=== PATIENT | female | born 1965 | race Two or more races ===

== ENCOUNTER 2020-07-30 16:18 | Inpatient (IN) | payer OTHER, SELFPAY ==
[~2020-07-30] VITALS: Ht 154.9 cm; Wt 91.4 kg
[2020-07-30 17:11] LABS: Basophils # (auto) 0 10 ^3/uL (0-0.2); Basophils % (auto) 0.2 % (0.0-2.0); Eosinophils # (auto) 0 10 ^3/uL (0-0.8); Hemoglobin 12.9 g/dL (12.2-16.2); Lymphocytes # (auto) 1.2 10 ^3/uL (0.4-5.4); Lymphocytes % (auto) 25.2 % (10.0-50.0); Mean Corpuscular Hemoglobin 29.1 pg (28.0-32.0); Mean Corpuscular Hgb Conc. 33.9 g/dL (32.0-36.0); Mean Corpuscular Volume 85.8 fL (80.0-100.0); Monocytes # (auto) 0.5 10 ^3/uL (0-1.3); Monocytes % (auto) 10.1 % (0.0-12.0); Neutrophils # (auto) 3.2 10 ^3/uL (1.6-8.6); Neutrophils % (auto) 64.5 % (37.0-80.0); Nucleated Red Blood Cells % 0.1 %; Red Blood Cells 4.43 10^6/uL (4.0-5.20); White Blood Cell 4.9 10^3/uL (4.4-10.8)
[2020-07-30 17:27] LABS: Albumin 2.8 g/dL (3.4-5.0); Anion Gap 9 (5-15); Blood Urea Nitrogen 8 mg/dL (7-18); Calcium 8.4 mg/dL (8.5-10.1); Carbon Dioxide 25 mmol/L (21-32); Chloride 98 mmol/L (98-107); Magnesium 1.7 mg/dL (1.6-2.6); Potassium 3.8 mmol/L (3.5-5.1); Sodium 132 mmol/L (136-145)
[2020-07-30] MEDS ORDERED: DexAMETHasone SOD PHOS 10MG/1ML VIAL INJ IV ONE (17:30)
[2020-07-30] MEDS ORDERED: AZITHROMYCIN 500MG/ 250ML 250 ML IV ONE (17:30)
[2020-07-30 17:33] LABS: Alanine Aminotransferase 29 U/L (13-56); Alkaline Phosphatase 129 U/L (45-117); Aspartate Aminotransferase 26 U/L (15-37); BUN/Creatinine Ratio 9.4; Bilirubin, Total 0.3 mg/dL (0.2-1.0); GFR African American 90 mL/min; GFR Non-African American 74 mL/min; Lactic Acid w/Reflex 2.4 mmol/L (0.4-2.0); Total Protein 7.5 g/dL (6.4-8.2)
[2020-07-30 18:19] LABS: Glucose 445 mg/dL (74-106)
[2020-07-30] MEDS ORDERED: SODIUM CHLORIDE 0.9% 1,000 ML IV ONE (18:30)
[2020-07-30] MEDS ORDERED: ONDANSETRON HCL 4 MG/2 ML VIAL IV PRN (21:45)
[2020-07-30] MEDS ORDERED: NITROGLYCERIN 0.4 MG SL TAB SL PRN (21:45)
[2020-07-30] MEDS ORDERED: TEMAZEPAM 15 MG CAP PO PRN (21:45)
[2020-07-30] MEDS ORDERED: MORPHINE SULFATE INJECTION 2 MG/ML SYRG IV PRN (21:45)
[2020-07-30] MEDS ORDERED: cloNIDine HCL 0.1 MG TAB PO PRN (21:45)
[2020-07-30] MEDS ORDERED: DEXTROSE (50%) 50ML SYRG IV PRN (21:45)
[2020-07-30 22:41] LABS: CRP High Sensitivity 7.82 mg/dL (< 0.3)
[2020-07-30] MEDS: ENOXAPARIN SOD 40 MG/0.4 ML SYRINGE SC SCH (23:36)
[2020-07-30] MEDS: FAMOTIDINE 20 MG TAB PO SCH (23:36)
[2020-07-31] MEDS: InsuLIN REG 1unit/0.01ml Soln (100units/ml) SC SCH ×4 (00:03→17:02)
[2020-07-31] MEDS: ACCU-CHEK COMFORT CURVE STRIP VI SCH ×4 (00:06→17:02)
[2020-07-31 06:07] LABS: Basophils # (auto) 0 10 ^3/uL (0-0.2); Basophils % (auto) 0.1 % (0.0-2.0); Eosinophils # (auto) 0 10 ^3/uL (0-0.8); Hematocrit 35.3 % (36.0-46.0); Hemoglobin 12.1 g/dL (12.2-16.2); Lymphocytes # (auto) 0.9 10 ^3/uL (0.4-5.4); Lymphocytes % (auto) 21.9 % (10.0-50.0); Mean Corpuscular Hemoglobin 29.6 pg (28.0-32.0); Mean Corpuscular Hgb Conc. 34.3 g/dL (32.0-36.0); Mean Corpuscular Volume 86.3 fL (80.0-100.0); Monocytes # (auto) 0.4 10 ^3/uL (0-1.3); Monocytes % (auto) 11.2 % (0.0-12.0); Neutrophils # (auto) 2.7 10 ^3/uL (1.6-8.6); Neutrophils % (auto) 66.8 % (37.0-80.0); Nucleated Red Blood Cells % 0.1 %; Red Blood Cells 4.09 10^6/uL (4.0-5.20); Red Cell Distribution Width 15.2 % (11.8-14.3)
[2020-07-31 06:50] LABS: Albumin 2.7 g/dL (3.4-5.0); Potassium 4.3 mmol/L (3.5-5.1)
[2020-07-31 06:58] LABS: BUN/Creatinine Ratio 14.7; Bilirubin, Total 0.3 mg/dL (0.2-1.0); Total Protein 7.3 g/dL (6.4-8.2)
[2020-07-31] MEDS: DexAMETHasone SOD PHOS 10MG/1ML VIAL INJ IV SCH (09:49)
[2020-07-31] MEDS: ENOXAPARIN SOD 40 MG/0.4 ML SYRINGE SC SCH ×2 (09:49→21:57)
[2020-07-31] MEDS: CHOLECALCIFEROL (VITD3) 2,000 UNIT CAP/TAB PO SCH (09:49)
[2020-07-31] MEDS: ZINC SULFATE 220mg CAP or TAB PO SCH (09:49)
[2020-07-31] MEDS: ASCORBIC ACID 1,000 MG TAB PO SCH (09:49)
[2020-07-31] MEDS: FAMOTIDINE 20 MG TAB PO SCH ×2 (09:49→21:57)
[2020-07-31] MEDS: AZITHROMYCIN 500MG/ 250ML 250 ML IV SCH (09:49)
[2020-07-31] MEDS ORDERED: REMDESIVIR PER PHARMACY 0 ML IV SCH (11:45)
[2020-07-31] MEDS ORDERED: REMDESIVIR 200 MG in NS 210ml LOADING DOSE ADULT IV ONE (15:00)
[2020-07-31] MEDS ORDERED: INSULIN LISPRO (HUMAN) 100 UNITS/ML ML SC ONE (17:30)
[2020-07-31 21:15] VITALS: BP 106/65
[2020-07-31 22:00] VITALS: BP 106/65
[2020-07-31] MEDS: INSULIN LANTUS (GLARGINE) 1 /0.01ml (100units/ml) SC SCH (22:10)
[2020-07-31] MEDS: guaiFENesin 200 MG/10 ML UD PO PRN (22:15)
[2020-08-01] VITALS: BP 121/71
[2020-08-01] MEDS: ACETAMINOPHEN 500 MG TAB PO PRN (02:44)
[2020-08-01] MEDS: ACCU-CHEK COMFORT CURVE STRIP VI SCH ×5 (06:22→19:34)
[2020-08-01] MEDS: InsuLIN REG 1unit/0.01ml Soln (100units/ml) SC SCH ×5 (06:29→19:38)
[2020-08-01] MEDS: ALBUTEROL SULF HFA 90MCG INH 200DOSE IN PRN (06:57)
[2020-08-01 07:36] LABS: Potassium 3.4 mmol/L (3.5-5.1)
[2020-08-01 07:48] LABS: Albumin 2.6 g/dL (3.4-5.0); BUN/Creatinine Ratio 25.4; Bilirubin, Total 0.2 mg/dL (0.2-1.0); Calcium 8.3 mg/dL (8.5-10.1); Total Protein 6.7 g/dL (6.4-8.2)
[2020-08-01 08:00] VITALS: BP 114/76
[2020-08-01] MEDS: ZINC SULFATE 220mg CAP or TAB PO SCH (09:17)
[2020-08-01] MEDS: AZITHROMYCIN 500MG/ 250ML 250 ML IV SCH (09:17)
[2020-08-01] MEDS: guaiFENesin 200 MG/10 ML UD PO PRN (09:17)
[2020-08-01] MEDS: DexAMETHasone SOD PHOS 10MG/1ML VIAL INJ IV SCH (09:17)
[2020-08-01] MEDS: ASCORBIC ACID 1,000 MG TAB PO SCH (09:18)
[2020-08-01] MEDS: CHOLECALCIFEROL (VITD3) 2,000 UNIT CAP/TAB PO SCH (09:18)
[2020-08-01] MEDS: FAMOTIDINE 20 MG TAB PO SCH ×2 (09:18→21:41)
[2020-08-01] MEDS: INSULIN LANTUS (GLARGINE) 1 /0.01ml (100units/ml) SC SCH (09:19)
[2020-08-01] MEDS: ENOXAPARIN SOD 40 MG/0.4 ML SYRINGE SC SCH ×2 (09:19→21:42)
[2020-08-01] MEDS ORDERED: POTASSIUM EFFERVESENT TAB 25 MEQ PO ONE (11:15)
[2020-08-01] MEDS ORDERED: CEFTRIAXONE SODIUM 2 GM in D5W 5% 50 ML IV ONE (11:15)
[2020-08-01] MEDS: ERGOCALCIFEROL 50,000 UNIT(1.25MG) CAP PO SCH (14:03)
[2020-08-01] MEDS: THROAT LOZENGES(CEPASTAT) MT PRN ×2 (14:04→17:16)
[2020-08-01 16:00] VITALS: BP 122/70
[2020-08-01] MEDS: REMDESIVIR 100 MG in SODIUM CHL 0.9% 250 ML IV SCH (16:34)
[2020-08-01] MEDS ORDERED: InsuLIN REG 1unit/0.01ml Soln (100units/ml) IV ONE (18:00)
[2020-08-01] MEDS ORDERED: DEXTROSE (50%) 50ML SYRG IV PRN (18:00)
[2020-08-01] MEDS ORDERED: INSULIN LANTUS (GLARGINE) 1 /0.01ml (100units/ml) SC SCH (22:00)
[2020-08-02] VITALS: BP 116/70
[2020-08-02] MEDS: ACCU-CHEK COMFORT CURVE STRIP VI SCH ×6 (00:25→20:15)
[2020-08-02] MEDS: HYDROcodone-ACET 5/325MG TAB PO PRN (00:26)
[2020-08-02] MEDS: InsuLIN REG 1unit/0.01ml Soln (100units/ml) SC SCH ×6 (00:27→20:29)
[2020-08-02 07:14] LABS: Potassium 3.6 mmol/L (3.5-5.1)
[2020-08-02 07:34] LABS: Albumin 2.4 g/dL (3.4-5.0); BUN/Creatinine Ratio 24.2; Bilirubin, Total 0.2 mg/dL (0.2-1.0); Calcium 8.3 mg/dL (8.5-10.1); Total Protein 6.3 g/dL (6.4-8.2)
[2020-08-02 08:00] VITALS: BP 99/59
[2020-08-02] MEDS: AZITHROMYCIN 500MG/ 250ML 250 ML IV SCH (10:00)
[2020-08-02] MEDS: ENOXAPARIN SOD 40 MG/0.4 ML SYRINGE SC SCH ×2 (10:00→22:44)
[2020-08-02] MEDS: CHOLECALCIFEROL (VITD3) 2,000 UNIT CAP/TAB PO SCH (12:28)
[2020-08-02] MEDS: ZINC SULFATE 220mg CAP or TAB PO SCH (12:28)
[2020-08-02] MEDS: ASCORBIC ACID 1,000 MG TAB PO SCH (12:28)
[2020-08-02] MEDS: FAMOTIDINE 20 MG TAB PO SCH ×2 (12:28→22:44)
[2020-08-02] MEDS: DexAMETHasone SOD PHOS 10MG/1ML VIAL INJ IV SCH (12:32)
[2020-08-02] MEDS: cefTRIAXone 1GM/50ML D5W 50 ML IV SCH (12:32)
[2020-08-02] MEDS: THROAT LOZENGES(CEPASTAT) MT PRN (12:32)
[2020-08-02] MEDS: INSULIN LANTUS (GLARGINE) 1 /0.01ml (100units/ml) SC SCH ×2 (12:34→22:46)
[2020-08-02 16:00] VITALS: BP 111/61
[2020-08-02] MEDS: REMDESIVIR 100 MG in SODIUM CHL 0.9% 250 ML IV SCH (16:45)
[2020-08-02] MEDS: ALBUTEROL SULF HFA 90MCG INH 200DOSE IN PRN (22:00)
[2020-08-02] MEDS: ACETAMINOPHEN 500 MG TAB PO PRN (22:45)
[2020-08-02 23:22] VITALS: BP 104/66
[2020-08-03] VITALS: BP 104/66
[2020-08-03] MEDS: ACCU-CHEK COMFORT CURVE STRIP VI SCH ×6 (00:15→20:23)
[2020-08-03] MEDS: InsuLIN REG 1unit/0.01ml Soln (100units/ml) SC SCH ×6 (00:17→20:25)
[2020-08-03 05:35] VITALS: BP 117/71
[2020-08-03 06:23] LABS: Basophils # (auto) 0 10 ^3/uL (0-0.2); Basophils % (auto) 0.1 % (0.0-2.0); Eosinophils # (auto) 0 10 ^3/uL (0-0.8); Hemoglobin 12.5 g/dL (12.2-16.2); Monocytes # (auto) 0.6 10 ^3/uL (0-1.3); Neutrophils # (auto) 4.7 10 ^3/uL (1.6-8.6); Nucleated Red Blood Cells % 0.1 %; White Blood Cell 6.7 10^3/uL (4.4-10.8)
[2020-08-03 06:30] LABS: Hematocrit 36.5 % (36.0-46.0); Lymphocytes # (auto) 1.3 10 ^3/uL (0.4-5.4); Lymphocytes % (auto) 20.1 % (10.0-50.0); Mean Corpuscular Hemoglobin 28.8 pg (28.0-32.0); Mean Corpuscular Hgb Conc. 34.2 g/dL (32.0-36.0); Monocytes % (auto) 8.6 % (0.0-12.0); Neutrophils % (auto) 71.2 % (37.0-80.0); Red Blood Cells 4.35 10^6/uL (4.0-5.20); Red Cell Distribution Width 14.9 % (11.8-14.3)
[2020-08-03 07:56] LABS: Albumin 2.4 g/dL (3.4-5.0); Calcium 8.6 mg/dL (8.5-10.1)
[2020-08-03 08:00] VITALS: BP 87/59
[2020-08-03 08:01] LABS: BUN/Creatinine Ratio 22.1; Bilirubin, Total 0.2 mg/dL (0.2-1.0); Total Protein 6.9 g/dL (6.4-8.2)
[2020-08-03] MEDS: THROAT LOZENGES(CEPASTAT) MT PRN ×2 (10:40→22:15)
[2020-08-03] MEDS: cefTRIAXone 1GM/50ML D5W 50 ML IV SCH (10:47)
[2020-08-03] MEDS: DexAMETHasone SOD PHOS 10MG/1ML VIAL INJ IV SCH (10:50)
[2020-08-03] MEDS: ASCORBIC ACID 1,000 MG TAB PO SCH (10:51)
[2020-08-03] MEDS: ENOXAPARIN SOD 40 MG/0.4 ML SYRINGE SC SCH ×2 (10:51→22:15)
[2020-08-03] MEDS: CHOLECALCIFEROL (VITD3) 2,000 UNIT CAP/TAB PO SCH (10:51)
[2020-08-03] MEDS: FAMOTIDINE 20 MG TAB PO SCH ×2 (10:51→22:15)
[2020-08-03] MEDS: AZITHROMYCIN 500MG/ 250ML 250 ML IV SCH (10:52)
[2020-08-03] MEDS: ACETAMINOPHEN 500 MG TAB PO PRN ×2 (10:53→22:15)
[2020-08-03] MEDS: ZINC SULFATE 220mg CAP or TAB PO SCH (10:58)
[2020-08-03] MEDS: INSULIN LANTUS (GLARGINE) 1 /0.01ml (100units/ml) SC SCH ×2 (11:14→22:19)
[2020-08-03 16:00] VITALS: BP 112/64
[2020-08-03] MEDS: REMDESIVIR 100 MG in SODIUM CHL 0.9% 250 ML IV SCH (16:39)
[2020-08-03] MEDS: ALBUTEROL SULF HFA 90MCG INH 200DOSE IN PRN (19:55)
[2020-08-03 23:12] VITALS: BP 114/57
[2020-08-04] VITALS (7 sets, daily range): BP systolic 104–132; BP diastolic 57–75
[2020-08-04] MEDS: ACCU-CHEK COMFORT CURVE STRIP VI SCH ×6 (00:30→20:48)
[2020-08-04] MEDS: InsuLIN REG 1unit/0.01ml Soln (100units/ml) SC SCH ×7 (00:31→23:00)
[2020-08-04] MEDS: ACETAMINOPHEN 500 MG TAB PO PRN ×2 (06:45→18:20)
[2020-08-04] MEDS: ALBUTEROL SULF HFA 90MCG INH 200DOSE IN PRN ×2 (07:45→20:11)
[2020-08-04 07:49] LABS: Potassium 3.4 mmol/L (3.5-5.1)
[2020-08-04 08:26] LABS: Albumin 2.7 g/dL (3.4-5.0); BUN/Creatinine Ratio 20.7; Calcium 8.7 mg/dL (8.5-10.1)
[2020-08-04 08:29] LABS: Bilirubin, Total 0.2 mg/dL (0.2-1.0); Total Protein 6.9 g/dL (6.4-8.2)
[2020-08-04] MEDS: INSULIN LANTUS (GLARGINE) 1 /0.01ml (100units/ml) SC SCH ×2 (09:30→23:00)
[2020-08-04] MEDS: ZINC SULFATE 220mg CAP or TAB PO SCH (09:30)
[2020-08-04] MEDS: ASCORBIC ACID 1,000 MG TAB PO SCH (09:30)
[2020-08-04] MEDS: FAMOTIDINE 20 MG TAB PO SCH ×2 (09:31→21:45)
[2020-08-04] MEDS: DexAMETHasone SOD PHOS 10MG/1ML VIAL INJ IV SCH (09:31)
[2020-08-04] MEDS: cefTRIAXone 1GM/50ML D5W 50 ML IV SCH (09:31)
[2020-08-04] MEDS: ENOXAPARIN SOD 40 MG/0.4 ML SYRINGE SC SCH ×2 (09:36→21:47)
[2020-08-04] MEDS: CHOLECALCIFEROL (VITD3) 2,000 UNIT CAP/TAB PO SCH (09:37)
[2020-08-04] MEDS: AZITHROMYCIN 500MG/ 250ML 250 ML IV SCH (11:46)
[2020-08-04] MEDS ORDERED: POTASSIUM CHL 20 Meq TABLET PO ONE (14:15)
[2020-08-04] MEDS ORDERED: FUROSEMIDE 40 MG/4 ML VIAL IV ONE (14:15)
[2020-08-04] MEDS ORDERED: InsuLIN REG 1unit/0.01ml Soln (100units/ml) SC ONE (15:30)
[2020-08-04] MEDS: REMDESIVIR 100 MG in SODIUM CHL 0.9% 250 ML IV SCH (16:58)
[2020-08-04] MEDS ORDERED: FLUCONAZOLE 100 MG TAB PO ONE (21:00)
[2020-08-04] MEDS ORDERED: DEXTROSE (50%) 50ML SYRG IV PRN (21:00)
[2020-08-05] VITALS: BP 111/63
[2020-08-05] MEDS: ACCU-CHEK COMFORT CURVE STRIP VI SCH ×8 (00:25→22:47)
[2020-08-05] MEDS: ALBUTEROL SULF HFA 90MCG INH 200DOSE IN PRN ×2 (06:16→19:32)
[2020-08-05] MEDS: InsuLIN REG 1unit/0.01ml Soln (100units/ml) SC SCH ×4 (07:00→22:54)
[2020-08-05 08:00] VITALS: BP 113/69
[2020-08-05] MEDS: cefTRIAXone 1GM/50ML D5W 50 ML IV SCH (08:47)
[2020-08-05] MEDS: INSULIN LANTUS (GLARGINE) 1 /0.01ml (100units/ml) SC SCH ×2 (09:32→22:54)
[2020-08-05] MEDS: ASCORBIC ACID 1,000 MG TAB PO SCH (09:34)
[2020-08-05] MEDS: CHOLECALCIFEROL (VITD3) 2,000 UNIT CAP/TAB PO SCH (09:34)
[2020-08-05] MEDS: DexAMETHasone SOD PHOS 10MG/1ML VIAL INJ IV SCH (09:34)
[2020-08-05] MEDS: ZINC SULFATE 220mg CAP or TAB PO SCH (09:34)
[2020-08-05] MEDS: FLUCONAZOLE 100 MG TAB PO SCH (09:34)
[2020-08-05] MEDS: FAMOTIDINE 20 MG TAB PO SCH ×2 (09:34→22:55)
[2020-08-05] MEDS: ENOXAPARIN SOD 40 MG/0.4 ML SYRINGE SC SCH ×2 (09:34→22:54)
[2020-08-05 16:00] VITALS: BP 105/58
[2020-08-05] MEDS ORDERED: INSULIN LISPRO (HUMAN) 100 UNITS/ML ML SC ONE (16:45)
[2020-08-05] MEDS: THROAT LOZENGES(CEPASTAT) MT PRN (19:34)
[2020-08-06] VITALS: BP 114/66
[2020-08-06] MEDS: ALBUTEROL SULF HFA 90MCG INH 200DOSE IN PRN ×2 (06:23→19:25)
[2020-08-06] MEDS: ACCU-CHEK COMFORT CURVE STRIP VI SCH ×4 (06:34→22:46)
[2020-08-06] MEDS: InsuLIN REG 1unit/0.01ml Soln (100units/ml) SC SCH ×4 (06:40→22:49)
[2020-08-06] MEDS: INSULIN LISPRO (HUMAN) 100 UNITS/ML ML SC SCH ×3 (07:00→16:38)
[2020-08-06 08:30] VITALS: BP 104/60
[2020-08-06] MEDS: cefTRIAXone 1GM/50ML D5W 50 ML IV SCH (09:11)
[2020-08-06] MEDS: THROAT LOZENGES(CEPASTAT) MT PRN (09:12)
[2020-08-06] MEDS: ZINC SULFATE 220mg CAP or TAB PO SCH (09:30)
[2020-08-06] MEDS: DexAMETHasone SOD PHOS 10MG/1ML VIAL INJ IV SCH (09:30)
[2020-08-06] MEDS: HYDROcodone-ACET 5/325MG TAB PO PRN (09:30)
[2020-08-06] MEDS: FAMOTIDINE 20 MG TAB PO SCH ×2 (09:31→22:51)
[2020-08-06] MEDS: CHOLECALCIFEROL (VITD3) 2,000 UNIT CAP/TAB PO SCH (09:31)
[2020-08-06] MEDS: ENOXAPARIN SOD 40 MG/0.4 ML SYRINGE SC SCH ×2 (09:31→22:51)
[2020-08-06] MEDS: FLUCONAZOLE 100 MG TAB PO SCH (09:31)
[2020-08-06] MEDS: ASCORBIC ACID 1,000 MG TAB PO SCH (09:31)
[2020-08-06] MEDS: INSULIN LANTUS (GLARGINE) 1 /0.01ml (100units/ml) SC SCH ×2 (09:32→22:49)
[2020-08-06] MEDS: guaiFENesin 200 MG/10 ML UD PO PRN (12:48)
[2020-08-06 16:04] VITALS: BP 95/63
[2020-08-07] VITALS: BP 118/70
[2020-08-07] MEDS: ACCU-CHEK COMFORT CURVE STRIP VI SCH ×4 (06:17→22:20)
[2020-08-07] MEDS: INSULIN LISPRO (HUMAN) 100 UNITS/ML ML SC SCH ×3 (06:54→16:59)
[2020-08-07] MEDS: InsuLIN REG 1unit/0.01ml Soln (100units/ml) SC SCH ×4 (06:55→22:33)
[2020-08-07] MEDS: ALBUTEROL SULF HFA 90MCG INH 200DOSE IN PRN ×2 (07:18→20:36)
[2020-08-07 08:00] VITALS: BP 110/65
[2020-08-07] MEDS: DexAMETHasone SOD PHOS 10MG/1ML VIAL INJ IV SCH (10:18)
[2020-08-07] MEDS: cefTRIAXone 1GM/50ML D5W 50 ML IV SCH (10:18)
[2020-08-07] MEDS: ZINC SULFATE 220mg CAP or TAB PO SCH (10:18)
[2020-08-07] MEDS: FLUCONAZOLE 100 MG TAB PO SCH (10:19)
[2020-08-07] MEDS: ASCORBIC ACID 1,000 MG TAB PO SCH (10:20)
[2020-08-07] MEDS: CHOLECALCIFEROL (VITD3) 2,000 UNIT CAP/TAB PO SCH (10:20)
[2020-08-07] MEDS: INSULIN LANTUS (GLARGINE) 1 /0.01ml (100units/ml) SC SCH ×2 (10:20→22:33)
[2020-08-07] MEDS: ENOXAPARIN SOD 40 MG/0.4 ML SYRINGE SC SCH ×2 (10:20→22:43)
[2020-08-07] MEDS: FAMOTIDINE 20 MG TAB PO SCH ×2 (10:20→22:39)
[2020-08-07 15:53] VITALS: BP 104/58
[2020-08-08] VITALS: BP 112/62
[2020-08-08] MEDS: ACCU-CHEK COMFORT CURVE STRIP VI SCH ×2 (06:45→11:30)
[2020-08-08] MEDS: INSULIN LISPRO (HUMAN) 100 UNITS/ML ML SC SCH ×2 (06:46→11:30)
[2020-08-08] MEDS: InsuLIN REG 1unit/0.01ml Soln (100units/ml) SC SCH ×2 (06:46→11:30)
[2020-08-08 08:00] VITALS: BP 95/55
[2020-08-08] MEDS: DexAMETHasone SOD PHOS 10MG/1ML VIAL INJ IV SCH (09:19)
[2020-08-08] MEDS: cefTRIAXone 1GM/50ML D5W 50 ML IV SCH (09:19)
[2020-08-08] MEDS: FAMOTIDINE 20 MG TAB PO SCH (09:20)
[2020-08-08] MEDS: FLUCONAZOLE 100 MG TAB PO SCH (09:20)
[2020-08-08] MEDS: ASCORBIC ACID 1,000 MG TAB PO SCH (09:21)
[2020-08-08] MEDS: ZINC SULFATE 220mg CAP or TAB PO SCH (09:21)
[2020-08-08] MEDS: CHOLECALCIFEROL (VITD3) 2,000 UNIT CAP/TAB PO SCH (09:21)
[2020-08-08] MEDS: INSULIN LANTUS (GLARGINE) 1 /0.01ml (100units/ml) SC SCH (09:22)
[2020-08-08] MEDS: ENOXAPARIN SOD 40 MG/0.4 ML SYRINGE SC SCH (09:23)
[2020-08-08 11:17] VITALS: BP 114/69
[2020-08-08] MEDS: ERGOCALCIFEROL 50,000 UNIT(1.25MG) CAP PO SCH (12:00)
== END 2020-08-08 12:40 | disposition home or self-care (01) | DRG 177 ==
LOC: ER 16:18 → EDBD 16:18 → TELE 16:19 → TELE-EAST 07-31 21:10
PROVIDERS: ADMIT Nurse Practitioner; ATTEND Internal Medicine
PROC: XW033E5 Introduction of Remdesivir Anti-infective into Peripheral Vein, Percutaneous Approach, New Technology Group 5 (ICD-10-PCS; principal; 2020-07-31)
DX: U07.1 COVID-19 (principal); J12.82 Pneumonia due to coronavirus disease 2019; J96.01 Acute respiratory failure with hypoxia; E87.1 Hypo-osmolality and hyponatremia; B95.1 Streptococcus, group B, as the cause of diseases classified elsewhere; E11.65 Type 2 diabetes mellitus with hyperglycemia; E66.01 Morbid (severe) obesity due to excess calories; E55.9 Vitamin D deficiency, unspecified; I10 Essential (primary) hypertension; J45.909 Unspecified asthma, uncomplicated; Z82.49 Family history of ischemic heart disease and other diseases of the circulatory system; Z83.3 Family history of diabetes mellitus; Z68.38 Body mass index [BMI] 38.0-38.9, adult
CPT/HCPCS: 36415; 71045; 80053; 82306; 82728; 82962; 83036; 83605; 83615; 83735; 83880; 84443; 84484; 85025; 85379; 86141; 87040; 87070; 87205; 87426; 87880; 93005; 94640; G0378; J0696; J1100; J1815; J7060